=== PATIENT | female | born 1975 | race Caucasian/White ===

== ENCOUNTER → 2018-08-29 | Day surgery (SDC) | payer OTHER ==
[2018-08-26 14:52] VITALS: BMI 26.5
[~2018-08-29] MED LIST: BUPIVACAINE HCL/PF 2.5 MG/ML - 30 ML VIAL IJ ONE; DESFLURANE GAS 240 ML BOTTLE IH ONE; DEXAMETHASONE SOD PHOSPHATE 4 MG/1 ML VIAL ONE; EPINEPHrine/PF 1 MG/1 ML (1:1,000) AMPULE ONE; HEPARIN NA (PORCINE) 5,000 UNITS/ML 1ML VIAL ONE; LACTATED RINGERS SOLUTION 1,000 ML IV SCH; LIDOCAINE HCL 1% PRESERVATIVE FREE - 30ML VIAL ONE; MIDAZOLAM HCL 2 MG/2 ML SINGLE DOSE VIAL ONE; NEOSTIGMINE METHYLSULFATE 0.5 MG/ML - 10 ML MDV ONE; ONDANSETRON 4 MG/2 ML VIAL IVPB PRN; ONDANSETRON 4 MG/2 ML VIAL IVPUSH PRN; ONDANSETRON 4 MG/2 ML VIAL ONE; PROPOFOL 20 ML ONE; ROCURONIUM BROMIDE 50 MG/5 ML VIAL ONE; ceFAZolin SODIUM 1 GM VIAL ONE; ePHEDrine SULFATE 50 MG/1 ML AMPULE ONE; oxyCODONE HCL 5 MG TABLET ONE; oxyCODONE HCL 5 MG TABLET PO PRN
--- NOTE | 2018-08-29 12:30 | OP ---
Operative Note - Note: Operative Date: 08/29/18 Pre-Operative Diagnosis: lipodystrophy Operation: medial thigh, back and abdomen liposuction Post-Operative Diagnosis: Same as Pre-op Surgeon: Juan Daniel Magana Anesthesia: General Operative Report Dictated: Yes
--- NOTE | 2018-08-29 13:14 | OP ---
DATE OF OPERATION: 08/29/2018 TITLE OF PROCEDURE: Liposuction to abdomen, flanks, back and medial thighs. PREOPERATIVE DIAGNOSIS: Lipodystrophy. POSTOPERATIVE DIAGNOSIS: Lipodystrophy. ATTENDING SURGEON: Juan Daniel Magana MD CARNIVAL WORKER: No assistants. ANESTHESIA: General endotracheal anesthesia. Patient is seen in the holding area, marked in a standing upright position, awake and aware of all areas for liposuction. She is counseled on risks, benefits and alternatives to the procedure as well as its limitations. Understands and agrees to proceed. Patient is given 5000 units of subcutaneous heparin preoperatively. She is given NUHA hose and sequential compression stockings bilaterally. She is brought to the OR. After being intubated and anesthetized she is then placed in a prone position. Appropriate positioning aids are used including chest rolls, pillow for the knees and shins, heel protectors. The patient is positioned and is carefully checked by surgical and anesthesia teams. She is prepped and draped in standard surgical fashion. At this point a timeout is called. Patient, procedure, side and sites are verified. The liposuction is then performed initially with stab wound incisions in multiple locations through which wetting solution is infiltrated. For the entire case a total of 4 L of wetting solution are used. Three of the liters consist of a liter of lactated ringers with 1 ampule of 1:1000 epinephrine and 20 mL of 1% lidocaine plain. The 4th bag does not include lidocaine. The wetting solution is infiltrated on the posterior surface to the medial thighs, flanks and back. A full 25 minutes is awaited for hemostatic effect of the wetting solution after which the SAFE technique of liposuction is then performed. This is done with pre and post tunneling with a 4-mm basket-tipped cannula not connected to suction. After this separation phase liposuction is then performed with a combination of 3- and 4-mm cannulas. The lipoaspirates are 675 mL from each medial thigh. The back in total yields 600 mL and the flanks 100 mL each. The endpoint is a smooth even contour. It should be noted that the total amount of lipoaspirate from the medial thighs was not completed in the posterior prone position because some was accessed from the anterior supine position. The liposuction holes are closed after the post tunneling phase. This is done with a series of interrupted 5-0 nylon sutures and dressings are applied with Steri-Strips, 2 x 2 gauze and Tegaderm. Patient is then carefully transferred into a supine position on to her hospital bed and then transferred back on to the operating table in a supine position. Position is once again checked by surgical and anesthesia teams. She is reprepped and draped in standard surgical fashion and the procedure commences again in a similar fashion. Stab wound incisions are made through which our wetting solution is infiltrated. After awaiting the 25 minutes for hemostatic effect the liposuction is then performed using the same SAFE technique. The lipoaspirates were as previously described for the medial thighs. The abdomen entirely yields only 200 mL of lipoaspirate the bulk of which is from the upper abdomen. The lower abdomen is treated mostly with smoothing using the pre and post tunneling with the basketed cannula as well as more superficial tunneling with a 3-mm cannula until a smooth even contour is achieved. End point is a smooth even contour. The patient is placed in a frog-leg position at which point the medial thighs are reassessed. Additional touch-up liposuction is then performed in these areas. The incisions are closed with a series of interrupted 5-0 nylon suture. Dressings are applied with Steri-Strips and 2 x 2's and Tegaderm. Patient is awoken from anesthesia. She is placed in a compressive garment, transferred to recovery without complication. Once again the total lipoaspirate for this case is 2250 mL. Molly [id number]
[2018-08-29 13:30] VITALS: TEMP 98.2
[2018-08-29 15:41] VITALS: BP 108/72; PULSE 86
== END | disposition home or self-care (01) ==
LOC: FASU 06:09
PROVIDERS: ATTEND Plastic Surgery
PROC: 0J073ZZ Alteration of Back Subcutaneous Tissue and Fascia, Percutaneous Approach (ICD-10-PCS; 2018-08-29)
PROC: 0J0M3ZZ Alteration of Left Upper Leg Subcutaneous Tissue and Fascia, Percutaneous Approach (ICD-10-PCS; 2018-08-29)
PROC: 0J0L3ZZ Alteration of Right Upper Leg Subcutaneous Tissue and Fascia, Percutaneous Approach (ICD-10-PCS; 2018-08-29)
PROC: 0J083ZZ Alteration of Abdomen Subcutaneous Tissue and Fascia, Percutaneous Approach (ICD-10-PCS; principal; 2018-08-29 07:30)
DX: E88.1 Lipodystrophy, not elsewhere classified (principal)
CPT/HCPCS: 94760; J1644